=== PATIENT | male | born 1995 | race Two or more races ===

== ENCOUNTER 2019-11-01 06:08 | Emergency (ER) | payer MEDICAID ==
[2019-11-01] MEDS ORDERED: NS 1,000 ML IV ONE (06:15)
[2019-11-01 06:30] VITALS: BP 148/88
== END 2019-11-01 06:20 | disposition left against medical advice (07) ==
LOC: M ED 06:08
DX: Z53.21 Procedure and treatment not carried out due to patient leaving prior to being seen by health care provider (principal)